=== PATIENT | female | born 1995 | race Caucasian/White ===

== ENCOUNTER 2019-05-03 15:45 | Emergency (ER) | payer SELFPAY ==
[~2019-05-03 15:45] MED LIST: AZIT250T PO
== END 2019-05-03 16:26 | disposition left against medical advice (07) ==
LOC: ER 15:46
DX: R11.2 Nausea with vomiting, unspecified (principal); Z53.21 Procedure and treatment not carried out due to patient leaving prior to being seen by health care provider
CPT/HCPCS: 99283